=== PATIENT | male | born 1995 | race Caucasian/White ===

== ENCOUNTER → 2023-03-20 | Outpatient (CLI) | payer BC ==
[~2023-03-20] MED LIST: ALBU4ER; ALBU90OI INH; CALCIUM SUPPLEMENT PO; CEPH500 PO; FLUSAL1005 INH; HYDACE5 PO; LORCET 5-325 M1 EACH PO; MULTIVITAMIN PO; RISE5 PO
== END | disposition home or self-care (01) ==
LOC: LAB 07:15 → LAB SHORT 07:15
DX: J45.40 Moderate persistent asthma, uncomplicated (principal); R05.3 Chronic cough
CPT/HCPCS: 87015; 87070; 87077; 87116; 87186; 87205; 87206

== ENCOUNTER → 2023-08-27 | Outpatient (CLI) | payer SELFPAY ==
[2023-08-29 14:06] LABS: APTIMA MEDIA TYPE Urine; C. TRACHOMATIS BY TMA Negative (Negative); N. GONORRHOEAE BY TMA Negative (Negative); SPECIMEN SOURCE Urine
== END ==
LOC: LAB SHORT 16:37 → LAB 16:37
PROVIDERS: Physician Assistant
DX: Z72.51 High risk heterosexual behavior (principal)
CPT/HCPCS: 87086; 87491; 87591